=== PATIENT | female | born 1970 | race Two or more races ===

== ENCOUNTER 2017-01-25 10:07 | Emergency (ER) | payer MEDICAID ==
[~2017-01-25] VITALS: Ht 157.5 cm; Wt 79.4 kg
[2017-01-25 11:18] VITALS: BP 125/80
[2017-01-25] MEDS ORDERED: LIDOCAINE 1% HCL (LOCAL ANESTH.) INJ 20ML MDV IN ONE (12:00)
== END 2017-01-25 12:24 | disposition home or self-care (01) ==
LOC: ER 10:07
DX: L02.211 Cutaneous abscess of abdominal wall (principal); E11.9 Type 2 diabetes mellitus without complications
CPT/HCPCS: 10060

== ENCOUNTER 2017-01-27 07:51 | Emergency (ER) | payer MEDICAID ==
[~2017-01-27] VITALS: Ht 157.5 cm; Wt 79.4 kg
[2017-01-27 07:57] VITALS: BP 133/74
== END 2017-01-27 08:56 | disposition home or self-care (01) ==
LOC: ER 07:51
DX: L02.211 Cutaneous abscess of abdominal wall (principal); E11.9 Type 2 diabetes mellitus without complications; Z48.01 Encounter for change or removal of surgical wound dressing